=== PATIENT | male | born 1950 | race Caucasian/White ===

== ENCOUNTER → 2016-07-18 | Outpatient (CLI) | payer MEDICARE, OTHER ==
--- NOTE | 2016-07-19 08:04 | KCIC ---
PROCEDURE Lumbar spine MRI without contrast. HISTORY Lower back pain and left hip pain. TECHNIQUE Multiplanar and multi sequence magnetic resonance imaging of the lumbar spine was performed without contrast. COMPARISON None. FINDINGS There is mild lumbar levoscoliosis. There is grade 1 anterolisthesis of L3 on L4, measuring 4 mm. There is degenerative endplate remodeling at all levels, predominately L4-L5 and L5-S1. There is disc space narrowing and Schmorl's node formation primarily at these levels. The conus terminates at L1. There is no suspicious osseous lesion. There is heterogeneous marrow signal primarily within the sacrum secondary to fatty marrow placement. There are small focal areas hypointensity within both kidneys possibly due to vascular calcifications or nonobstructing stones, an incidental finding. There is mild epidural lipomatosis. At L1-L2, there is a disc bulge and endplate remodeling. There is mild facet arthropathy. There is hypertrophy of the ligamentum flavum. There is mild bilateral foraminal stenosis. At L2-L3, there is a left foraminal to extra foraminal disc protrusion and annular tear superimposed on a disc bulge and endplate remodeling. There is mild facet arthropathy. There is hypertrophy of the ligamentum flavum. There is mild left foraminal stenosis with abutment of the exiting left L2 nerve root. There is mild central canal stenosis and slight effacement of the left lateral recess. At L3-L4, there is a disc bulge with right extra foraminal to lateral disc protrusion and annular tear superimposed on endplate remodeling. There is severe facet arthropathy. There is hypertrophy of the ligamentum flavum. There is mild bilateral foraminal stenosis with abutment of the exiting L3 nerve roots. There is severe central canal stenosis. At L4-L5, there is a diffuse disc bulge and endplate osteophytosis. There is moderate facet arthropathy. There is hypertrophy of the ligamentum flavum. There is mild bilateral foraminal stenosis. There is mild central canal stenosis. At L5-S1, there is a left foraminal to lateral disc osteophyte complex superimposed on a disc bulge and endplate remodeling. There is mild left facet arthropathy. There is [id number] left foraminal stenosis with effacement of the exiting left L5 nerve root. IMPRESSION 1. Multilevel degenerative change throughout the lumbar spine, described in detail above. This results in mild bilateral foraminal stenosis at L1-L2, mild left foraminal and central canal stenosis at L2-L3, mild bilateral foraminal and severe central canal stenosis at L3-L4, mild bilateral foraminal and central canal stenosis at L4-L5, and mild to moderate left foraminal stenosis at L5-S1. 2. Grade 1 anterolisthesis of L3 on L4 and mild scoliosis. Electronically signed by: Luzmaria Henao (Jul 19, 2016 08:02:05)
== END | disposition home or self-care (01) ==
LOC: KCIC MRI 17:22
PROVIDERS: ATTEND Family Medicine
DX: M48.06 Spinal stenosis, lumbar region (principal)
CPT/HCPCS: 72148

== ENCOUNTER → 2021-01-12 | Outpatient (CLI) | payer MEDICARE, OTHER ==
[~2021-01-12] MED LIST: ASPI-630 PO; GADOTERATE 5 MMOL/10ML VIAL. INT ART ONE; IOHEXOL 300 MG/ML 50 ML VIAL. INT ART ONE; LIDOCAINE 1% Multi-Dose 20 ML VIAL. ID ONE; LOSA-73 PO; NAPR-514 PO; OMEP20TA63 PO
--- NOTE | 2021-01-12 15:05 | KCIC ---
EXAM: Fluoroscopic guided right shoulder injection for MR arthrography. HISTORY: Pain. TECHNIQUE: The risks of the procedure were discussed with the patient and written and verbal consent was obtained. A time out was performed. Fluoroscopic imaging of the right shoulder was performed and a site overlying the joint space was selected for needle entry. The skin overlying this region was st erilely prepped, draped and infiltrated with 1% lidocaine. A spinal needle was then advanced into the joint space with fluoroscopic guidance. Appropriate needle tip positioning was confirmed with inject ion of 3 cc Isovue 300 contrast. Subsequently, 10 cc of a 1:200 mixture of gadolinium contrast in 1% lidocaine and Isovue 300 contrast was injected into the joint space. Fluoroscopic images demonstrate intraarticular accumulation of contrast. The needle was removed and a sterile bandage was placed at [facility] needle entry site. The patient tolerated the procedure without difficulty and was transferred to [facility] MR suite for the post injection MR portion of the exam. The total fluoroscopy time was 27 seconds and a single fluoroscopic spot image was obtained. IMPRESSION: Successful fluoroscopic guided right shoulder injection for MR arthrography. Please refer to the separate MR arthrogram report for further evaluation details. Electronically signed by: Luzmaria Henao MD (01/12/2021 3:03 PM) [id number]
--- NOTE | 2021-01-12 15:05 | KCIC ---
Examination: MRI right shoulder arthrogram HISTORY: History of right shoulder pain, pain COMPARISON: None available Technique: Multiplanar multisequence MR imaging of the right shoulder performed after arthrogram inje ction FINDINGS: The long head of the biceps tendon within the bicipital groove. The attachment of the long head the b iceps tendon to the superior labral anchor grossly appears intact. The attachment of the subscapulari s tendon grossly appears intact. There is full-thickness tear of the supraspinatus tendon measuring 1 .4 cm with extension of contrast from the shoulder joint into subacromial subdeltoid bursa. The attac hment of the infraspinatus tendon, teres minor tendon grossly appears intact. The muscle bulk grossly appears unremarkable. Acromion is type II. The acromion is downsloping with t he inferior aspect of the acromion abutting the supraspinatus tendon. Moderate degenerative changes a cromioclavicular joint. Fat is present in the rotator interval. The visualized labrum grossly appears unremarkable. Moderate degenerative changes glenohumeral joint. IMPRESSION: 1. Full-thickness tear of the supraspinatus tendon with extension of contrast in the subacromial subd eltoid bursa. The inferior aspect of the acromion abuts the superior aspect of the supraspinatus tend on. Correlate for impingement. 2. Moderate tendinosis rotator cuff. Electronically signed by: Jer Lopez MD (01/12/2021 3:02 PM) [id number]
== END ==
LOC: KCIC 12:37
PROVIDERS: ATTEND Orthopaedic Surgery
DX: M25.511 Pain in right shoulder (principal)
CPT/HCPCS: 23350; 73222; 77002; A9575; J3490; Q9967

== ENCOUNTER 2021-03-05 10:13 | Day surgery (SDC) | payer MEDICARE, OTHER ==
[~2021-03-05] VITALS: Ht 193 cm; Wt 100.0 kg
[~2021-03-05 10:13] MED LIST changes: +ATOR10TA60 PO; +BIOT25006 PO; +CYCL5TAB PO; -GADOTERATE 5 MMOL/10ML VIAL. INT ART ONE; +HYDROmorphone 2 MG/ML VIAL IVP PRN; -IOHEXOL 300 MG/ML 50 ML VIAL. INT ART ONE; -LIDOCAINE 1% Multi-Dose 20 ML VIAL. ID ONE; +MELA3TAB4 PO; +MORPHINE SULFATE 2 MG/ML INJ. IVP PRN; +MULT-245 PO; +PROCHLORPERAZINE 10 MG/2 ML VIAL. IVP PRN; +TELM40TA PO; +fentaNYL PF VIAL 100 MCG/2 ML VIAL IVP PRN
[2021-03-05 10:40] VITALS: BP 164/75
[2021-03-05] MEDS: IV RINGERS,LACTATED 1000ML 1,000 ML IV SCH ×2 (10:45→14:46)
[2021-03-05] MEDS ORDERED: MIDAZOLAM HCL/PF 2 MG/2 ML VIAL. ONE ×2 (11:16→11:47)
[2021-03-05] MEDS ORDERED: ROPIVacaine 0.5% PF 20 ML VIAL. ONE (11:17)
[2021-03-05] MEDS ORDERED: EPINEPHrine VIAL 30 MG/30 ML VIAL ONE (11:39)
[2021-03-05] MEDS ORDERED: PROPOFOL 10 MG/ML (20ML) VIAL. IV ONE (11:47)
[2021-03-05] MEDS ORDERED: fentaNYL PF VIAL 100 MCG/2 ML VIAL ONE (11:47)
[2021-03-05] MEDS ORDERED: LIDOCAINE 2% PF 5 ML VIAL. ONE (11:47)
[2021-03-05] MEDS ORDERED: ROCURONIUM 50 MG/5 ML VIAL. ONE (11:58)
[2021-03-05] MEDS ORDERED: DEXAMETHASONE SOD PHOS 4 MG/ML VIAL ONE (11:59)
[2021-03-05] MEDS ORDERED: SEVOFLURANE > 120 MINUTES. IH ONE (11:59)
[2021-03-05] MEDS ORDERED: ONDANSETRON PF 4 MG/2 ML VIAL. ONE (11:59)
[2021-03-05] MEDS ORDERED: NEOSTIGMINE METHYLSULFATE 5 MG/5 ML SYRINGE. ONE (13:54)
[2021-03-05] MEDS ORDERED: GLYCOPYRROLATE 1 MG/5 ML VIAL. ONE (13:54)
[2021-03-05] MEDS ORDERED: OXYC1TAB19 PO (14:29)
--- NOTE | 2021-03-05 14:45 | DISCH ---
DISCHARGE INSTRUCTIONS Condition on Discharge Condition on Discharge: Stable Activity After Discharge Activity Instructions for Disc: Other, see below (May use right arm for fine motor use with arm at side such as eating writing and typing no lifting elbow away from side without help from the other arm) Weight Bearing Status after Di: Non weight bearing Diet after Discharge Diet after Discharge: Regular Wound Incision Care Wound/Incision Care: Ice to area for comfort, Change dressing (May remove dressing in 2 days may then shower no soaking until sutures removed) Community/Resources/Services Services at Discharge: PT EVALUATE & TREAT (Passive range of motion of operative shoulder only to start until reevaluate on follow-up) Contacting the after DC Call your doctor for: Concerns you may have Follow-Up Follow up with: Dr. Perera or Ladonna 10 days FLORINDA PERERA MD Mar 05, 2021 14:44
[2021-03-05] MEDS ORDERED: oxyCODONE/APAP 7.5/325 1 TAB TABLET PO ONE (15:00)
--- NOTE | 2021-03-05 15:03 | PDOC4 ---
Operative Note Operative Note Date of surgery: 03/05/2021 Preoperative diagnosis: Rotator cuff tear and biceps long head compromise Postoperative diagnosis: Same with Pasta rotator cuff tear superior labral fraying and long head biceps compromise Operative procedure: Right shoulder arthroscopy arthroscopic rotator cuff repair biceps tenodesis and labral debridement Surgeon: [employer] Applier: Pavel bautista assist Anesthesia: General plus scalene block Estimated blood loss: 10 cc Complications: None Operative indications: Please see my orthopedic clinic note for detailed operative indications and note that we had covered treating the rotator cuff tear and biceps labral pathology with likely rotator cuff repair and biceps tenodesis as well as addressing any other pathological conditions. I talked to her risk benefits postoperative course of the procedure including the possibility of infection nonhealing continued pain stiffness nerve or blood vessel damage medical or other anesthetic complications among others in the long recovery timeframe typically expected in recovery and need for extensive home exercises and physical therapy. All his questions were answered he wishes to proceed with surgical evaluation and treatment Operative text: Patient was identified procedure verified patient placed in the supine position on operating table. After adequate amount of general anesthesia were administered plus a pre-existing scalene block patient was placed in the decubitus position right side up all bony promises were well-padded he was found to have full range of motion with no instability. The right shoulder was then prepped and draped in standard sterile fashion with the arm placed in 10 pounds of traction with the arthroscopic arm chen. After timeout was performed patient procedure identified and verified a standard posterior portal was estab lished anterior portal established using spinal needle localization and the shoulder joint was systematically examined. He was noted to have a high-grade partial undersurface tear of the supraspinatus and infraspinatus insertion with approximately 85 to 90% of the rotator cuff footprint uncovered. Biceps anchor was compromised and the biceps tendon was very irritated and frayed. Superior labrum also had fraying which was trimmed back to stable tissue with the arthroscopic bipolar electrocautery biceps was tagged and tenotomized. Subacromial space was then entered and subacromial bursa was cleared to allow visualization. No significant acromial spurring was noted and the acromioclavicular joint was not compromised. A Pasta rotator cuff repair was carried out by drilling a single loaded 1.9 juggernaut anchor anteriorly and the posterior anchor having initially pulled out was converted to a 2.7 double loaded juggernaut for which one suture was removed and provided excellent purchase posteriorly. Sutures were tied with a square knot and brought down to the rotator cuff surface and the other limbs tied with alternating post half hit ches to lock the repair in place and reapposed the rotator cuff footprint. Biceps groove was unroofed and the biceps tendon delivered through an anterior portal and was tensioned and tenodesed with a 9 mm x 16 mm Quatro bolt tenodesis screw which gave excellent purchase and restored biceps contour. The joint was drained of arthroscopic fluid portals were closed with nylon suture sterile dressings were applied patient was placed in immobilizer and returned to recovery room in stable condition having tolerated procedure well. Pavel Martinez office assistant receptionist was present for the procedure assisted in patient positioning prepping draping retraction closure and dressings FLORINDA LOPEZ MD Mar 05, 2021 15:03
[2021-03-05 15:36] VITALS: BP 146/73
== END 2021-03-05 16:51 | disposition home or self-care (01) ==
LOC: SURG 10:13
PROVIDERS: ATTEND Orthopaedic Surgery
DX: M75.121 Complete rotator cuff tear or rupture of right shoulder, not specified as traumatic (principal); I10 Essential (primary) hypertension; E78.00 Pure hypercholesterolemia, unspecified; K21.9 Gastro-esophageal reflux disease without esophagitis; M19.90 Unspecified osteoarthritis, unspecified site; Z85.828 Personal history of other malignant neoplasm of skin; Z79.899 Other long term (current) drug therapy; Z98.890 Other specified postprocedural states; Z79.82 Long term (current) use of aspirin; Z87.891 Personal history of nicotine dependence; Z72.89 Other problems related to lifestyle
CPT/HCPCS: 29827; 29828; 64415; A4364; A4930; A6222; A6402; C1713; C1776; J0171; J0690; J1100; J2250; J2405; J2704; J2710; J2795; J3010; J3490; A4452